=== PATIENT | female | born 1960 | race Caucasian/White ===

== ENCOUNTER 2017-03-28 08:57 | Day surgery (SDC) | payer BC ==
[2017-03-27 08:49] VITALS: BMI 26.9
[~2017-03-28 08:57] MED LIST: LACTATED RINGERS 1,000 ML IV SCH
[2017-03-28 09:15] VITALS: TEMP 98
[2017-03-28] MEDS ORDERED: LACTATED RINGERS 1,000 ML IV ONE (09:23)
[2017-03-28] MEDS ORDERED: LIDOCAINE 1% 20 ML VIAL (10MG/ML) FOR IV START INTRADERMA ONE (09:24)
[2017-03-28] MEDS ORDERED: PROPOFOL 10 MG/ML 20 ML VIAL IV ONE (10:18)
[2017-03-28] MEDS ORDERED: LIDOCAINE 1% INJ 10MG/ML (20 ML MDV) ONE (10:18)
--- NOTE | 2017-03-28 10:46 | P.PCN ---
Date of Procedure: 03/28/17 Preoperative Diagnosis: Postoperative Diagnosis: Procedure(s) Performed: BRIEF HISTORY: Patient is a 57-year-old pleasant white female, scheduled for an elective colonoscopy as a part of screening for colorectal neoplasia. PROCEDURE PERFORMED: Colonoscopy with biopsy. PREOPERATIVE DIAGNOSIS: Screening for colon cancer. IV sedation per Anesthesia. PROCEDURE: After informed consent was obtained, the patient, was brought into the endoscopy unit. IV sedation was administered by Anesthesia under continuous monitoring. Digital rectal examination was normal. Initially the Olympus CF- 160 flexible video colonoscope was then inserted in the rectum, gradually advanced into the cecum without any difficulty. Careful examination was performed as the scope was gradually being withdrawn. Ileocecal valve and the appendiceal orifice were visualized and appeared normal. Prep was excellent. Mucosa of the cecum, ascending colon, transverse colon, descending colon, sigmoid colon, and rectum appeared normal. In the proximal rectum there was a 5 mm polyp that was removed by biopsy. Scattered sigmoid diverticulosis seen. Retroflexion was performed in the rectum and no lesions were seen. The patient tolerated the procedure well. IMPRESSION: 5 mm proximal rectal polyp serous post-removal by biopsy. Rest of the colon appeared normal. Scattered sigmoid diverticulosis. RECOMMENDATIONS: Findings of this examination were discussed with the patient as well as a family. She was advised to follow with the biopsy results. If the biopsy shows a tubular adenoma, she can have a repeat colonoscopy in 5 years. Implants: Indications for Procedure: Operative Findings: Description of Procedure:
[2017-03-28 10:48] VITALS: RESP 16
[2017-03-28 11:03] VITALS: BP 123/80; PULSE 85
== END 2017-03-28 11:16 | disposition home or self-care (01) ==
LOC: ORWHC2ENDO 08:57
PROVIDERS: ATTEND Internal Medicine Gastroenterology
DX: Z12.11 Encounter for screening for malignant neoplasm of colon (principal); K62.1 Rectal polyp; K57.30 Diverticulosis of large intestine without perforation or abscess without bleeding; I34.1 Nonrheumatic mitral (valve) prolapse; Z87.891 Personal history of nicotine dependence; Z79.1 Long term (current) use of non-steroidal anti-inflammatories (NSAID); Z91.040 Latex allergy status
CPT/HCPCS: 88305; 45380; J2001; J2704

== ENCOUNTER → 2023-11-27 | Outpatient (CLI) | payer BC ==
--- NOTE | 2023-11-28 10:47 | MM ---
Reason for Exam: Screening (asymptomatic). Last mammogram was performed 3 year(s) and 2 month(s) ago. Patient History: Menarche at age 17. First Full-Term at age 24. Hysterectomy at age 41. Mother had breast cancer at or over age 50. Risk Values: Christie 5 year model risk: 2.6%. NCI Lifetime model risk: 12.1%. Prior Study Comparison: 02/17/2015 Bilateral Screening Mammogram, Unknown. 09/19/2017 Bilateral Screening Mammogram, Unknown. 10/09/2018 Bilateral Screening Mammogram, Unknown. 10/16/2020 Bilateral MG 3D screening mammo w/cad, Unknown. Tissue Density: The breasts are heterogeneously dense, which may obscure small masses. Findings: Analyzed By CAD. There is no suspicious group of microcalcifications or new suspicious mass in either breast. Benign calcifications. Overall Assessment: Benign, BI-RAD 2 Management: Screening Mammogram of both breasts in 1 year. . Patient should continue monthly self-breast exams. A clinical breast exam by your physician is recommended on an annual basis. This exam should not preclude additional follow-up of suspicious palpable abnormalities. Note on Christie scores and lifetime risk: 1. A Christie score greater than 3% is considered moderate risk. If this is the case, consider specialist referral to assess eligibility for a risk reducing agent. 2. If overall lifetime risk for the development of breast cancer is 20% or higher, the patient may qualify for future screening with alternating mammogram and breast MRI. Electronically signed and approved by: Everett De Los Santos M.D. Radiologis
== END | disposition home or self-care (01) ==
LOC: RADMAMWWP 06:48
PROVIDERS: ATTEND Family Medicine
DX: Z12.31 Encounter for screening mammogram for malignant neoplasm of breast (principal); Z80.3 Family history of malignant neoplasm of breast
CPT/HCPCS: 77063; 77067

== ENCOUNTER 2025-02-06 11:56 | Emergency (ER) | payer BC ==
[2025-02-06 12:23] VITALS: RESP 17
--- NOTE | 2025-02-06 12:29 | ED ---
General Adult HPI - General Chief complaint: Extremity Problem,Nontraumatic Stated complaint: Hand numbness Time Seen by Provider: 02/06/25 12:08 Source: patient, RN notes reviewed Mode of arrival: ambulatory Limitations: no limitations - History of Present Illness Initial comments: Patient is a 65-year-old female present to the emergency department from urgent care with several complaints. Onset of symptoms was around 24 hours ago. Patient has odd sensation bilateral hands. No weakness. No loss of sensation. Patient has discomfort left shoulder. Patient also has discomfort right lower leg, mid ricketts to the ankle region. Patient states it feels a little bit warm. No rash. No chest pain or dyspnea. No headache or confusion. - Related Data Home Medications Medication Instructions Recorded Confirmed Ibuprofen [Motrin] 800 mg PO Q8HR PRN 05/01/15 03/28/17 Allergies Allergy/AdvReac Type Severity Reaction Status Date / Time latex Allergy Rash/Hives Verified 02/06/25 12:24 Review of Systems ROS Statement: Those systems with pertinent positive or pertinent negative responses have been documented in the HPI. ROS Other: All systems not noted in ROS Statement are negative. Constitutional: Denies: fever Eyes: Denies: eye pain ENT: Denies: ear pain Respiratory: Denies: cough, dyspnea Cardiovascular: Denies: chest pain Gastrointestinal: Denies: abdominal pain Genitourinary: Denies: dysuria Neurological: Reports: as per HPI, paresthesias. Denies: headache, weakness Past Medical History Past Medical History: Mitral Valve Prolapse (MVP) Additional Past Medical History / Comment(s): hx varicose veins History of Any Multi-Drug Resistant Organisms: None Reported Past Surgical History: Hysterectomy, Tonsillectomy Additional Past Surgical History / Comment(s): mult vein stripping, rt oophorectomy Past Anesthesia/Blood Transfusion Reactions: No Reported Reaction Additional Past Anesthesia/Blood Transfusion Reaction / Comment(s): STATES HAS VERY LOW B/P POST OP IN THE PAST Past Psychological History: No Psychological Hx Reported Smoking Status: Light tobacco smoker Past Alcohol Use History: None Reported Past Drug Use History: None Reported - Past Family History Mother Family Medical History: Cancer Sister(s) Family Medical History: Cancer General Exam Limitations: no limitations General appearance: alert, in no apparent distress Head exam: Present: normocephalic Eye exam: Present: normal appearance, PERRL, EOMI Neck exam: Present: normal inspection Respiratory exam: Present: normal lung sounds bilaterally Cardiovascular Exam: Present: regular rate, normal rhythm Expanded Peripheral pulses: 2+: Radial (R), Radial (L), Posterior Tibialis (R), Posterior Tibialis (L), Dorsalis Pedis (R), Dorsalis Pedis (L) GI/Abdominal exam: Present: soft. Absent: tenderness Extremities exam: Present: normal inspection. Absent: pedal edema, calf tenderness Neurological exam: Present: alert, oriented X3, CN II-XII intact. Absent: motor sensory deficit Expanded Neurological exam: Present: protecting the airway Speech: Present: fluid speech Cranial nerves: EOM's Intact: Normal Sensory exam: Upper Extremity Light Touch: Normal, Lower Extremity Light Touch: Normal Motor strength exam: RUE: 5, LUE: 5, RLE: 5, LLE: 5 Eye Response: (4) open spontaneously Motor Response: (6) obeys commands Verbal Response: (5) oriented Psychiatric exam: Present: normal affect, normal mood Skin exam: Present: normal color Course Vital Signs 02/06/25 12:20 Temperature 98.3 F Pulse Rate 67 Respiratory 17 Rate Blood Pressure 136/83 O2 Sat by Pulse 98 Oximetry Medical Decision Making - Medical Decision Making Was pt. sent in by a medical professional or institution ([facility] Fleming, WATER MECHANIC, urgent care, hospital, or jail...) When possible be specific @ -Patient sent from urgent care Did you speak to anyone other than the patient for history (EMS, parent, family, police, friend...)? What history was obtained from this source @ -No Did you review nursing and triage notes (agree or disagree)? Why? @ -I reviewed and agree with nursing and triage notes Were old charts reviewed (outside hosp., previous admission, EMS record, old EKG, old radiological studies, urgent care reports/EKG's, jail records)? Report findings @ -No old charts were reviewed Differential Diagnosis (chest pain, altered mental status, abdominal pain women, abdominal pain men, vaginal bleeding, weakness, fever, dyspnea, syncope, headache, dizziness, GI bleed, back pain, seizure, CVA, palpatations, mental health, musculoskeletal)? @ -Differential Weakness: Hypoglycemia, shock, sepsis, hyponatremia, anemia, infection, NE, ETOH, adverse medicine reaction, overdose, stroke, this is not meant to be an all-inclusive list. EKG interpreted by me (3pts min.). @ -As above X-rays interpreted by me (1pt min.). @ -Left shoulder x-ray shows no acute abnormality CT interpreted by me (1pt min.). @ -CT brain without acute intercranial abnormality U/S interpreted by me (1pt. min.). @ -Ultrasound leg negative for DVT What testing was considered but not performed or refused? (CT, X-rays, U/S, labs)? Why? @ -None What meds were considered but not given or refused? Why? @ -None Did you discuss the management of the patient with other professionals (professionals i.e. , PA, WATER MECHANIC, lab, RT, psych nurse, case management social worker, hotel security officer, teacher, safety security officer, supervisor case loading)? Give summary @ -No Was smoking cessation discussed for >3mins.? @ -No Was critical care preformed (if so, how long)? @ -No Were there social determinants of health that impacted care today? How? (Ho melessness, low income, unemployed, alcoholism, drug addiction, transportation, low edu. Level, literacy, decrease access to med. care, senior living, rehab)? @ -No Was there de-escalation of care discussed even if they declined (Discuss DNR or withdrawal of care, Hospice)? DNR status @ -No What co-morbidities impacted this encounter? (DM, HTN, Smoking, COPD, CAD, Cancer, CVA, ARF, Chemo, Hep., AIDS, mental health diagnosis, sleep apnea, morbid obesity)? @ -None Was patient admitted / discharged? Hospital course, mention meds given and route, prescriptions, significant lab abnormalities, going to OR and other pertinent info. @ -Patient presents with concerns with hand paresthesias, left shoulder discomfort and right lower leg discomfort. Evaluation unremarkable. Patient is happy to be informed of this. Patient is updated on results and need for follow-up. Undiagnosed new problem with uncertain prognosis? @ -No Drug Therapy requiring intensive monitoring for toxicity (Heparin, Nitro, Ins ulin, Cardizem)? @ -No Were any procedures done? @ -No Diagnosis/symptom? @ -Paresthesia, left shoulder pain Acute, or Chronic, or Acute on Chronic? @ -Acute, acute Uncomplicated (without systemic symptoms) or Complicated (systemic symptoms)? @ -Default Side effects of treatment? @ -No Exacerbation, Progression, or Severe Exacerbation? @ -No Poses a threat to life or bodily function? How? (Chest pain, USA, NE, pneumonia, PE, COPD, DKA, ARF, appy, cholecystitis, CVA, Diverticulitis, Homicidal, Suicidal, threat to staff... and all critical care pts) @ -No - Lab Data Result diagrams: 02/06/25 13:10 02/06/25 13:10 Lab Results 02/06/25 02/06/25 Range/Units 13:10 13:10 WBC 6.91 (4.50-10.00) 10*3/uL RBC 4.62 (4.10-5.20) 10*6/uL Hgb 14.1 (12.0-15.0) g/dL Hct 40.6 (37.2-46.3) % MCV 87.9 (80.0-97.0) fL MCH 30.5 (27.0-32.0) pg MCHC 34.7 (32.0-37.0) g/dL Plt Count 218 (140-440) 10*3/uL MPV 12.0 (9.5-12.2) fL Immature Gran % (Auto) 0.3 % Neutrophils % 72.8 % Lymphocytes % 20.1 % Monocytes % 5.8 % Eosinophils % 0.7 % Basophils % 0.3 % Immature Gran # 0.02 (0.00-0.04) 10*3/uL Neutrophils # 5.03 (1.80-7.70) 10*3/uL Lymphocytes # 1.39 (0.90-5.00) 10*3/uL Monocytes # 0.40 (0.20-1.00) 10*3/uL Eosinophils # 0.05 (0.04-0.35) 10*3/uL Basophils # 0.02 (0.00-0.10) 10*3/uL Sodium 139 (137-145) mmol/L Potassium 4.2 (3.5-5.1) mmol/L Chloride 104 (98-107) mmol/L Carbon Dioxide 24 (22-30) mmol/L Anion Gap 11 mmol/L BUN 18 H (7-17) mg/dL Creatinine 0.82 (0.52-1.04) mg/dL Est GFR (CKD-EPI)AfAm 88 (>60 ml/min/1.73 sqM) Est GFR (CKD-EPI)NonAf 77 (>60 ml/min/1.73 sqM) Glucose 98 (74-99) mg/dL Calcium 9.7 (8.4-10.2) mg/dL Magnesium 2.1 (1.6-2.3) mg/dL Total Bilirubin 0.4 (0.2-1.3) mg/dL AST 21 (14-36) U/L ALT 15 (4-34) U/L Alkaline Phosphatase 69 (38-126) U/L Total Protein 6.9 (6.3-8.2) g/dL Albumin 4.4 (3.5-5.0) g/dL Disposition Clinical Impression: Paresthesia Disposition: HOME SELF-CARE Condition: Stable Instructions (If sedation given, give patient instructions): Shoulder Pain (ED), Paresthesia (ED) Additional Instructions: Try Ativan when you get home today to see if it improves your symptoms. Please do follow-up with your primary care physician in the next day or 2 for recheck. If shoulder discomfort continues please follow-up with orthopedics. Return for increased pain, weakness, confusion, worsening or change in symptoms or other concerns. Is patient prescribed a controlled substance at d/c from ED?: No Referrals: Justin Toure DO [Primary Care Provider] - 1-2 days John Dodd DO [Doctor of Osteopathic Medicine] - 1-2 days Time of Disposition: 14:17
--- NOTE | 2025-02-06 12:42 | XR ---
Left shoulder. HISTORY: Pain following fall. COMPARISON: None. TECHNIQUE: 3 views of left shoulder were obtained. FINDINGS: There is no fracture, dislocation, intraosseous, intra-articular or soft tissue abnormality. IMPRESSION: No significant abnormality seen. [facility], Workstation: [facility], 02/06/2025 12:40 PM
--- NOTE | 2025-02-06 13:02 | CT ---
EXAMINATION TYPE: CT brain wo con DATE OF EXAM: 02/06/2025 COMPARISON: None CLINICAL INDICATION: Female, 65 years old with history of parastesia; PHH, CT DLP: mGycm Automated exposure control for dose reduction was used. Findings: The ventricles, basal cisterns and sulci over the convexities are within normal limits and there is n o mass effect or shift of midline structures. There is mild diffuse decreased density in the periventricular white matter consistent with mild supervisor core drilling eve ischemic white matter demyelination. There is no acute intra or extra-axial hemorrhage. The posterior fossa including the brainstem, fourth ventricle and cerebellar pontine angles appear no rmal. Intraorbital contents appear normal and symmetric. Visualized paranasal sinuses and mastoid air cells are well aerated. The calvarium is intact. IMPRESSION: There is no acute bleed or mass effect. Mild chronic ischemic white matter demyelination. [facility], , 02/06/2025 1:00 PM
--- NOTE | 2025-02-06 13:22 | US ---
EXAMINATION TYPE: US venous doppler duplex LE RT DATE OF EXAM: 02/06/2025 1:00 PM COMPARISON: NONE CLINICAL INDICATION: Female, 65 years old with history of pain; hx clot in left leg per patient. Gaby ent has had bilateral vein stripping. Patient does not take blood thinners. Patient fell on Friday. TECHNIQUE: The lower extremity deep venous system is examined utilizing real time linear array sonog edil with graded compression, color doppler sonography, and spectral doppler. SIDE PERFORMED: Right FINDINGS: VESSELS IMAGED: Common Femoral Vein Deep Femoral Vein Femoral Vein Popliteal Vein Small Saphenous Vein * Proximal Calf Veins (* superficial vessels) The deep venous system of the right lower extremity from the common femoral vein to the proximal calf veins is patent and compressible with augmentable flow with normal waveforms. IMPRESSION: No evidence of right lower extremity DVT from the common femoral vein to the proximal calf veins [facility], , 02/06/2025 1:20 PM
[2025-02-06 13:25] LABS: Basophils # (A) 0.02 10*3/uL (0.00-0.10); Basophils % (A) 0.3 %; Eosinophils # (A) 0.05 10*3/uL (0.04-0.35); Eosinophils % (A) 0.7 %; HCT 40.6 % (37.2-46.3); HGB 14.1 g/dL (12.0-15.0); Lymphocytes # (A) 1.39 10*3/uL (0.90-5.00); Lymphocytes % (A) 20.1 %; MCH 30.5 pg (27.0-32.0); MCHC 34.7 g/dL (32.0-37.0); MCV 87.9 fL (80.0-97.0); Monocytes # (A) 0.40 10*3/uL (0.20-1.00); Monocytes % (A) 5.8 %; Neutrophils # (A) 5.03 10*3/uL (1.80-7.70); Neutrophils % (A) 72.8 %; Platelet Count 218 10*3/uL (140-440); RBC 4.62 10*6/uL (4.10-5.20); RDW 13.6 % (11.5-14.5); WBC 6.91 10*3/uL (4.50-10.00)
[2025-02-06 13:39] LABS: ALT 15 U/L (4-34); AST 21 U/L (14-36); African American GFR (CKD) 88 (>60 ml/min/1.73 sqM); Albumin 4.4 g/dL (3.5-5.0); Alkaline Phosphatase 69 U/L (38-126); Anion Gap 11 mmol/L; Blood Urea Nitrogen 18 mg/dL (7-17); Calcium 9.7 mg/dL (8.4-10.2); Carbon Dioxide 24 mmol/L (22-30); Chloride 104 mmol/L (98-107); Glucose 98 mg/dL (74-99); Magnesium 2.1 mg/dL (1.6-2.3); Non-African American GFR(CKD) 77 (>60 ml/min/1.73 sqM); Potassium 4.2 mmol/L (3.5-5.1); Sodium 139 mmol/L (137-145); Total Protein 6.9 g/dL (6.3-8.2)
[2025-02-06] MEDS: LORazepam 1 MG TAB PO STA (14:25)
[2025-02-06 14:32] VITALS: BP 114/71; PULSE 58; TEMP 98.4
== END 2025-02-06 14:31 | disposition home or self-care (01) ==
LOC: EC 11:56
DX: R20.2 Paresthesia of skin (principal); F17.200 Nicotine dependence, unspecified, uncomplicated; Z91.040 Latex allergy status
CPT/HCPCS: 36415; 70450; 80053; 83735; 85025; 99284

== ENCOUNTER → 2025-02-10 | Outpatient (CLI) | payer BC ==
--- NOTE | 2025-02-10 11:11 | US ---
EXAMINATION TYPE: US pelvis complete transvag DATE OF EXAM: 02/10/2025 COMPARISON: NONE CLINICAL INDICATION: Female, 65 years old with history of R10.32 LEFT LOWER QUADRANT PAIN; LLQ pain x 2 days, Hx hysterectomy age 41. Uterus and rt ovary surgically absent. TECHNIQUE: Transvaginal (TV) and Transabdominal (TA) . Transabdominal grayscale sonographic images of the pelvis were acquired. Transvaginal sonographic im ages were medically necessary to better assess the following anatomy: Ovaries Doppler imaging: Not performed. FINDINGS: Date of LMP: hysterectomy age 41 EXAM MEASUREMENTS: Uterus: Surgically absent Right Ovary: Surgically absent Left Ovary: Not visualized due to bowel gas. 1. Uterus: Surgically absent 2. Endometrium: Surgically absent 3. Right Ovary: Surgically absent 4. Left Ovary: Obscured by overlying bowel gas 5. Bilateral Adnexa: Obscured by overlying bowel gas 6. Posterior cul-de-sac: wnl [employer] notes: exam limited due to overlying bowel gas. Attention paid to LLQ/ patients area of p ain. Sonographic appearance of left pelvis may suggest possibly two fecalith-filled diverticu la. See images 41/48 and 53 IMPRESSION: 1. Status post hysterectomy. Right ovary also surgically absent. Unable to visualize the left ovary. 2. The fourchette sewer indicates the possibility of underlying diverticulosis and prominent distal stool. If clinically warranted, consideration can be given to CT for further evaluation. [facility], , 02/10/2025 11:09 AM
== END | disposition home or self-care (01) ==
LOC: RADUSWWP 09:58
PROVIDERS: ATTEND Family Medicine
DX: R10.32 Left lower quadrant pain (principal); Z90.721 Acquired absence of ovaries, unilateral; Z90.710 Acquired absence of both cervix and uterus
CPT/HCPCS: 76830; 76856

== ENCOUNTER → 2025-02-10 | Outpatient (CLI) | payer BC ==
--- NOTE | 2025-02-10 15:18 | MM ---
Reason for Exam: Screening (asymptomatic). Last mammogram was performed 1 year(s) and 2 month(s) ago. Patient History: Menarche at age 17. First Full-Term at age 24. Right ovary removed at age 47. Hysterectomy at age 41. Niece had breast cancer, age 38. Mother had breast cancer, age 40. Risk Values: Christie 5 year model risk: 2.7%. NCI Lifetime model risk: 11.4%. Prior Study Comparison: 10/09/2018 Bilateral Screening Mammogram, Unknown. 10/16/2020 Bilateral MG 3D screening mammo w/cad, Unknown. 11/27/2023 Bilateral MG 3D screening mammo w/cad, [facility]. Tissue Density: The breasts are heterogeneously dense, which may obscure small masses. Findings: Analyzed By CAD. There is no suspicious group of microcalcifications or new suspicious mass in either breast. Upon compression there is improvement right breast. Overall Assessment: Incomplete: need additional imaging evaluation, BI-RAD 0 Management: Diagnostic Breast Ultrasound of the right breast. . Patient should continue monthly self-breast exams. A clinical breast exam by your physician is recommended on an annual basis. This exam should not preclude additional follow-up of suspicious palpable abnormalities. Note on Christie scores and lifetime risk: 1. A Christie score greater than 3% is considered moderate risk. If this is the case, consider specialist referral to assess eligibility for a risk reducing agent. 2. If overall lifetime risk for the development of breast cancer is 20% or higher, the patient may qualify for future screening with alternating mammogram and breast MRI. [facility], , 02/10/2025 3:16 PM. Electronically signed and approved by: Everett De Los Santos M.D. Radiologis
== END | disposition home or self-care (01) ==
LOC: RADMAMWWP 14:42
PROVIDERS: ATTEND Family Medicine
DX: Z12.31 Encounter for screening mammogram for malignant neoplasm of breast (principal); R92.333 Mammographic heterogeneous density, bilateral breasts; Z80.3 Family history of malignant neoplasm of breast
CPT/HCPCS: 77063; 77067